=== PATIENT | female | born 1950 | race Hispanic/Latino ===

== ENCOUNTER 2017-08-20 12:25 | Outpatient (CLI) | payer MEDICARE | END 2017-08-20 12:26 | disposition home or self-care (01) | LOC: BICRAD 12:25 | PROVIDERS: ATTEND Family Medicine | DX: I10 Essential (primary) hypertension (principal); I51.7 Cardiomegaly | CPT/HCPCS: 71046 ==

== ENCOUNTER 2017-09-02 08:07 | Outpatient (CLI) | payer MEDICARE | END 2017-09-02 08:08 | disposition home or self-care (01) | LOC: BICMAMMO 08:07 | PROVIDERS: ATTEND Family Medicine | DX: Z12.31 Encounter for screening mammogram for malignant neoplasm of breast (principal); M81.0 Age-related osteoporosis without current pathological fracture | CPT/HCPCS: 77063; 77067; 77080 ==